=== PATIENT | female | born 2000 ===

== ENCOUNTER 2024-09-25 16:55 | Emergency (ER) | payer MEDICAID, BC ==
[2024-09-25] MEDS: Ketorolac 30 MG/ML SDV IM ONE (19:00)
[2024-09-25] MEDS: Ondansetron 4 MG Tab PO ONE (19:00)
== END 2024-09-25 20:12 | disposition home or self-care (01) ==
LOC: MW.ED 16:55
DX: B34.9 Viral infection, unspecified (principal); R51.9 Headache, unspecified
CPT/HCPCS: 87651; 96372; 99284; A9270; J1885; 99283